=== PATIENT | female | born 1950 | race Caucasian/White ===

== ENCOUNTER 2022-08-08 09:39 | Outpatient (CLI) | payer OTHER | END 2022-08-08 09:46 | disposition home or self-care (01) | LOC: LAB 09:39 | PROVIDERS: ATTEND Urology | DX: N30.00 Acute cystitis without hematuria (principal) ==

== ENCOUNTER 2022-12-07 08:20 | Outpatient (CLI) | payer OTHER | END 2022-12-07 08:31 | disposition home or self-care (01) | LOC: TOM 08:20 | PROVIDERS: ATTEND Urology | DX: N39.0 Urinary tract infection, site not specified (principal) ==